=== PATIENT | female | born 1940 | race Caucasian/White ===

== ENCOUNTER 2020-01-06 22:01 | Outpatient (CLI) | payer MEDICARE, OTHER | END 2020-01-06 22:02 | disposition short-term general hospital (02) | LOC: EMS 22:01 | PROVIDERS: ATTEND Surgery | DX: R07.89 Other chest pain (principal) | CPT/HCPCS: A0425; A0427 ==

== ENCOUNTER 2020-01-26 09:35 | Outpatient (CLI) | payer MEDICARE, OTHER ==
[2020-01-26 15:50] LABS: ALBUMIN 3.7 g/dL (3.2-5.5); CALCIUM 8.7 mg/dL (8.5-10.3); CREATININE 0.8 mg/dL (0.4-1.0); PHOSPHORUS 2.9 mg/dL (2.5-4.6)
== END 2020-01-26 09:36 | disposition home or self-care (01) ==
LOC: LAB.S 09:35
PROVIDERS: ATTEND Internal Medicine Cardiovascular Disease
DX: I10 Essential (primary) hypertension (principal)
CPT/HCPCS: 36415; 80069

== ENCOUNTER 2020-02-06 15:27 | Outpatient (CLI) | payer MEDICARE, OTHER ==
[2020-02-06 20:29] LABS: CALCIUM 8.9 mg/dL (8.5-10.3); CREATININE 0.9 mg/dL (0.4-1.0)
== END 2020-02-06 15:28 | disposition home or self-care (01) ==
LOC: LAB.S 15:27
PROVIDERS: ATTEND Internal Medicine Cardiovascular Disease
DX: I10 Essential (primary) hypertension (principal)
CPT/HCPCS: 36415; 80048

== ENCOUNTER 2021-02-26 10:00 | Outpatient (CLI) | payer MEDICARE, OTHER ==
[2021-02-26 16:00] LABS: THYROID STIMULATING HORMONE 1.43 uIU/mL (0.34-5.60)
[2021-02-26 16:02] LABS: FREE T3 3.44 pg/mL (2.5-3.9); FREE T4 (FREE THYROXINE) 1.03 ng/dL (0.58-1.64)
== END 2021-02-26 10:01 | disposition home or self-care (01) ==
LOC: LAB.S 10:00
PROVIDERS: ATTEND Internal Medicine Endocrinology, Diabetes & Metabolism
DX: E06.3 Autoimmune thyroiditis (principal); E07.9 Disorder of thyroid, unspecified
CPT/HCPCS: 36415; 84439; 84443; 84481

== ENCOUNTER 2022-01-10 13:16 | Outpatient (CLI) | payer MEDICARE, OTHER | END 2022-01-10 13:17 | disposition short-term general hospital (02) | LOC: EMS 13:16 | DX: R07.89 Other chest pain (principal) | CPT/HCPCS: A0425; A0427 ==

== ENCOUNTER 2023-02-06 13:33 | Emergency (ER) | payer MEDICARE, OTHER ==
[2023-02-06 13:55] VITALS: BP 146/66; O2SAT 98
--- NOTE | 2023-02-06 14:10 | XRAY Report ---
PROCEDURE: Wrist 4 View RT INDICATIONS: Trauma TECHNIQUE: 4 views of the wrist were acquired. COMPARISON: None. FINDINGS: Bones: No fractures or dislocations. No scaphoid fractures are seen. No suspicious bony lesions. Focal degenerative change is seen involving the first carpometacarpal joint, with milder degenerative changes seen elsewhere. Soft tissues: No suspicious soft tissue calcifications or masses. IMPRESSION: No displaced fractures are seen on these plain films. If it would be helpful for clinical management decision making, please consider a dedicated, schedule d wrist MRI for further evaluation (assuming that there is no contraindication). This should be perf ormed according to the arthrogram protocol, if there is strong clinical concern for a ligamentous abn ormality. Reviewed by: Kevyn Diaz MD on 02/06/2023 1:09 PM IVAN Approved by: Kevyn Diaz MD on 02/06/2023 1:09 PM IVAN Station ID: [id number]
--- NOTE | 2023-02-06 15:01 | ED Physician Documentation ---
History of Present Illness - Stated complaint Stated Complaint: RT WRIST PX - Chief complaint Chief Complaint: Ext Problem - Additonal information Additional information: 82-year-old female presents to the emergency department for evaluation of acute right hand and wrist pain. Began suddenly in the evening last night when she was laying in bed. Certain positions cause pain to radiate up from the wrist to the shoulder. She remembers an event earlier in the evening where she strained to open a bottle. She is right-hand dominant. Review of Systems Musculoskeletal: reports: Joint pain PD PAST MEDICAL HISTORY - Past Medical History Cardiovascular: Hypertension Endocrine/Autoimmune: HyPOthyroidism - Past Surgical History Past Surgical History: Yes General: Appendectomy, Bowel surgery /[employer]: Hysterectomy - Present Medications Home Medications: Ambulatory Orders Medication Instructions Recorded Confirmed Levothyroxine Sodium [Synthroid] 50 mcg PO DAILY 11/28/13 11/28/13 Metoprolol Tartrate 100 mg PO DAILY 11/28/13 11/28/13 - Allergies Allergies/Adverse Reactions: Allergies Allergy/AdvReac Type Severity Reaction Status Date / Time adhesive Allergy Unknown Verified 02/06/23 13:45 latex Allergy Unknown Verified 02/06/23 13:45 Sulfa (Sulfonamide Allergy Unknown Verified 02/06/23 13:45 Antibiotics) - Social History Does the pt smoke?: No Smoking Status: Never smoker Does the pt drink ETOH?: Yes Does the pt have substance abuse?: No - Immunizations Immunizations are current?: No PD ED PE EXPANDED - Extremities Extremities: Right wrist (Mild tenderness with supination of the right wrist. Swelling over the ulnar prominence but no ecchymosis. Normal flexion and exten virgilio of the wrist. Neurovascular intact. 2+ radial pulse.) Results - Vitals Vitals: Vital Signs - 24 hr 02/06/23 13:45 Temperature 36.5 C Heart Rate 62 Respiratory 16 Rate Blood Pressure 146/66 H O2 Saturation 98 Oxygen O2 Source Room air - Rads (name of study) right wrist Relevant Findings:: Final report received (No acute fracture or osseous lesion) PD Medical Decision Making - ED course Complexity details: reviewed results, d/w patient ED course: Well-appearing 82-year-old female presents emergency department for evaluation of acute right wrist pain that she noticed last night when laying in bed however earlier in the evening that she had strained to open a jar. X-ray did not show any acute fractures or dislocations. History is suggestive of a sprain or tendinopathy. She was placed in an Benjamin wrap advised Tylenol and Motrin [id number]. If not markedly better in 7 to 10 days consider repeat imaging. Departure - Departure Disposition: 01 Home, Self Care Clinical Impression: Sprain of wrist, right Qualifiers: Encounter type: initial encounter Qualified Code(s): S63.501A - Unspecified sprain of right wrist, initial encounter Condition: Stable Record reviewed to determine appropriate education?: Yes Instructions: ED Sprain Wrist Comments: Cassidy as discussed at the bedside I suspect that you are correct. When you attempted to open the jar yesterday you may have sprained the wrist or even inflamed the tendons. This is something that typically gets better with no interventions. I recommend you wear the Benjamin wrap on your wrist when out of bed for the next week or so. You can ice the wrist for 10 minutes 2-3 times a day. You can continue to take Tylenol. I recommend that you return immediately to the ER if you are having worsening symptoms fevers or redness of the wrist. Otherwise follow closely with your primary care doctor.
== END 2023-02-06 15:11 | disposition home or self-care (01) ==
LOC: ED 13:33
DX: S63.501A Unspecified sprain of right wrist, initial encounter (principal); X50.0XXA Overexertion from strenuous movement or load, initial encounter; Y93.89 Activity, other specified
CPT/HCPCS: 99283